=== PATIENT | male | born 2000 | race Caucasian/White ===

== ENCOUNTER 2022-10-17 21:35 | Emergency (ER) | payer BC, SELFPAY ==
[~2022-10-17] VITALS: Ht 188 cm; Wt 100.0 kg
[2022-10-17 21:35] VITALS: BP 143/80; TEMP 97.8; O2SAT 97
[2022-10-18] MEDS ORDERED: traMADol 50 MG TAB (HOME DOSE PACK) PO ONE (02:55)
== END 2022-10-18 03:14 | disposition home or self-care (01) ==
LOC: M ED 21:35
DX: S62.002A Unspecified fracture of navicular [scaphoid] bone of left wrist, initial encounter for closed fracture (principal); W19.XXXA Unspecified fall, initial encounter; Y92.830 Public park as the place of occurrence of the external cause; Y93.67 Activity, basketball; Y99.8 Other external cause status